=== PATIENT | female | born 1980 | race Two or more races ===

== ENCOUNTER 2020-07-14 21:49 | Observation (INO) | payer SELFPAY ==
[~2020-07-14] VITALS: Ht 157.5 cm; Wt 77.5 kg
[2020-07-14] MEDS ORDERED: CONTRAST GIVEN. MC PRN (22:45)
[2020-07-14] MEDS ORDERED: IOHEXOL 350 MG/ML 100 ML VIAL. IV ONE (22:45)
[2020-07-14 22:47] LABS: BILIRUBIN,URINE NEGATIVE (NEG); CLARITY,URINE CLEAR; COLOR,URINE YELLOW; NITRITE,URINE NEGATIVE (NEG); PH,URINE 7.5 (<5.0-8.0); PROTEIN,URINE NEGATIVE (NEG-TRACE); UROBILINOGEN,URINE 0.2 mg/dL (0.2 mg/dL)
[2020-07-14] MEDS ORDERED: MORPHINE SULFATE 10 MG/ML VIAL. ONE (22:51)
[2020-07-14 22:53] LABS: BASO % 0 % (0-3); EOS # 0.3 x10^3/uL (0.0-0.7); EOS % 2 % (0-3); HEMATOCRIT 34.6 % (36.0-47.0); HEMOGLOBIN 11.5 g/dL (12.0-15.5); LYMPH # 3.9 x10^3/uL (1.0-4.8); LYMPH % 36 % (24-48); MEAN CORPUSCULAR HEMOGLOBIN 25 pg (25-35); MEAN CORPUSCULAR HGB CONC 33 g/dL (31-37); MEAN CORPUSCULAR VOLUME 75 fL (79-100); MONO # 0.8 x10^3/uL (0.0-1.1); MONO % 7 % (0-9); NEUT # 5.8 x10^3/uL (1.8-7.7); NEUT % 54 % (31-73); PLATELET COUNT 345 x10^3/uL (140-400); RED BLOOD COUNT 4.61 x10^6/uL (3.50-5.40); RED CELL DISTRIBUTION WIDTH 17.3 % (11.5-14.5); WHITE BLOOD COUNT 10.7 x10^3/uL (4.0-11.0)
[2020-07-14 22:57] LABS: CALCIUM 8.7 mg/dL (8.5-10.1); CREATININE 0.7 mg/dL (0.6-1.0); GFR 94.2; POTASSIUM 3.5 mmol/L (3.5-5.1)
[2020-07-14 22:58] LABS: BACTERIA,URINE FEW /HPF (0-FEW); RBC,URINE 0 /HPF (0-2)
[2020-07-14] MEDS ORDERED: MORPHINE SULFATE 10 MG/ML VIAL. IV ONE (23:00)
[2020-07-14 23:03] LABS: ALBUMIN 3.9 g/dL (3.4-5.0); TOTAL BILIRUBIN 0.3 mg/dL (0.2-1.0); TOTAL PROTEIN 7.7 g/dL (6.4-8.2)
--- NOTE | 2020-07-14 23:42 | RAD ---
CTA Chest with contrast: Clinical History: Reason: back pain, chest pain, sob / Spl. Instructions: / History: Shortness of b reath. Axial helical images of the chest were obtained after the administration of 100 cc of IV Isovue-370 a nd timed appropriately for a pulmonary arterial study. Conventional axial reconstruction was perform ed in addition to coronal, sagittal and bilateral oblique MIP (maximum intensity projection). This s tudy was ordered to detect possible pulmonary embolism. There is a single tiny filling defect in the right lower lobe pulmonary artery seen in image #[id number]. The more peripheral subsegmental pulmonary arteries are not well opacified limiting our sensitivity f or small peripheral pulmonary emboli. There is mild patchy groundglass opacities bilaterally. There is a small hiatal hernia. There is no mediastinal or hilar lymphadenopathy. The thoracic aorta appears normal. Impression: 1. Single tiny pulmonary embolism. No significant clot burden. 2. Mild bilateral groundglass opacities of lungs is nonspecific and can be discoid atelectasis or pn eumonitis. End impression CT thoracic spine without contrast History: Reason: back pain, chest pain, sob / Spl. Instructions: / History: Axial helical images of the thoracic spine were obtained without contrast. Axial, coronal and sagitta l reconstruction was performed. Findings: There is mild dextroconvex curvature and kyphosis of the thoracic spine. The vertebral bodies are ali gned in the sagittal plane. There is no loss of vertebral body stature. Evaluation of the central canal is limited without contrast. There is no evidence of significant cent ral or neuroforaminal stenosis. Impression: 1. Mild dextro convex curvature and kyphosis. 2. No significant central or neuroforaminal stenosis. End impression PQRS Compliance Statement: One or more of the following individualized dose reduction techniques were utilized for this examinat ion: 1. Automated exposure control 2. Adjustment of the mA and/or kV according to patient size 3. Use of iterative reconstruction technique PQRS Compliance Statement: One or more of the following individualized dose reduction techniques were utilized for this examinat ion: 1. Automated exposure control 2. Adjustment of the mA and/or kV according to patient size 3. Use of iterative reconstruction technique Electronically signed by: Rafat Manzo III, MD (07/14/2020 11:39 PM) [facility]
[2020-07-15] MEDS ORDERED: ONDANSETRON PF 4 MG/2 ML VIAL. ONE (01:06)
[2020-07-15] MEDS ORDERED: ONDANSETRON PF 4 MG/2 ML VIAL. IVP ONE (01:15)
[2020-07-15 03:00] VITALS: BP 121/71
--- NOTE | 2020-07-15 03:29 | ED.ADGEN ---
Past Medical History Past Medical History: No Pertinent History Past Surgical History: Appendectomy, Cholecystectomy Smoking Status: Never Smoker Alcohol Use: None General Adult EDM: Chief Complaint: BACK PAIN - NO INJURY HPI: HPI: Patient is a 39-year-old female who presents to the emergency room complaining of severe thoracic back pain that radiates into her chest. Pain is worse with movement and deep breaths. She denies any cough, URI symptoms, fever, chills, abdominal pain, nausea, vomiting. She does have shortness of breath. She also feels this heaviness in her legs which has been intermittent for the last couple weeks. The pain in her chest and back have been ongoing for the last 30 hours. She states that it feels like a sharp moving pain. Pain is been constant. She denies any injuries. Review of Systems: Review of Systems: Complete ROS is negative unless otherwise documented in HPI Current Medications: Current Medications Medications (Trade) Dose Ordered Sig/Cordelia Start Time Stop Time Status Last Admin Dose Admin Enoxaparin Sodium (Lovenox 80mg Syringe) 80 mg 1X ONCE 07/15/20 00:00 07/15/20 00:01 DC 07/15/20 01:09 80 MG Info (CONTRAST GIVEN -- Rx MONITORING) 1 each PRN DAILY PRN 07/14/20 22:45 07/16/20 22:44 Iohexol (Omnipaque 350 Mg/ml) 100 ml 1X ONCE 07/14/20 22:45 07/14/20 22:46 DC 07/14/20 23:22 100 ML Morphine Sulfate (Morphine Sulfate) 5 mg 1X ONCE 07/14/20 23:00 07/14/20 23:01 DC 07/14/20 22:54 5 MG Allergies: Allergies: Allergies Coded Allergies Type Severity Reaction Last Updated Verified No Known Drug Allergies 07/14/20 No Physical Exam: PE: General: Awake, alert, mild distress. Well Nourished, well hydrated. Cooperative HEENT: Atraumatic, EOMI, PERRL, airway patent, moist oral mucosa Neck: Supple, trachea midline Respiratory: CTA bilaterally, normal effort, no wheezing/crackles CV: RRR, no murmur, cap refill <2 GI: Soft, nondistended, nontender, no masses MSK: Minimal tenderness to her thoracic back including spine Skin: Warm, dry, intact Neuro: A&O x3, speech NL, sensory and motor grossly intact, no focal deficits, normal sensation and 5 out of 5 strength proximally and distally in bilateral lower extremities Psych: Normal affect, normal mood, not suicidal or homicidal Current Patient Data: Labs: Laboratory Tests Test 07/14/20 22:00 07/14/20 22:18 07/14/20 22:30 07/15/20 00:05 Urine Collection Type Unknown Urine Color Yellow Urine Clarity Clear Urine pH 7.5 (<5.0-8.0) Urine Specific Callahan 1.015 (1.000-1.030) Urine Protein Negative mg/dL (NEG-TRACE) Urine Glucose (UA) Negative mg/dL (NEG) Urine Ketones (Stick) Negative mg/dL (NEG) Urine Blood Negative (NEG) Urine Nitrite Negative (NEG) Urine Bilirubin Negative (NEG) Urine Urobilinogen Dipstick 0.2 mg/dL (0.2 mg/dL) Urine Leukocyte Esterase Negative (NEG) Urine RBC 0 /HPF (0-2) Urine WBC 1-4 /HPF (0-4) Urine Squamous Epithelial Cells Many /LPF Urine Bacteria Few /HPF (0-FEW) POC Urine HCG, Qualitative Hcg negative (Negative) White Blood Count 10.7 x10^3/uL (4.0-11.0) Red Blood Count 4.61 x10^6/uL (3.50-5.40) Hemoglobin 11.5 g/dL (12.0-15.5) L Hematocrit 34.6 % (36.0-47.0) L Mean Corpuscular Volume 75 fL (79-100) L Mean Corpuscular Hemoglobin 25 pg (25-35) Mean Corpuscular Hemoglobin Concent 33 g/dL (31-37) Red Cell Distribution Width 17.3 % (11.5-14.5) H Platelet Count 345 x10^3/uL (140-400) Neutrophils (%) (Auto) 54 % (31-73) Lymphocytes (%) (Auto) 36 % (24-48) Monocytes (%) (Auto) 7 % (0-9) Eosinophils (%) (Auto) 2 % (0-3) Basophils (%) (Auto) 0 % (0-3) Neutrophils # (Auto) 5.8 x10^3/uL (1.8-7.7) Lymphocytes # (Auto) 3.9 x10^3/uL (1.0-4.8) Monocytes # (Auto) 0.8 x10^3/uL (0.0-1.1) Eosinophils # (Auto) 0.3 x10^3/uL (0.0-0.7) Basophils # (Auto) 0.0 x10^3/uL (0.0-0.2) Sodium Level 140 mmol/L (136-145) Potassium Level 3.5 mmol/L (3.5-5.1) Chloride Level 103 mmol/L (98-107) Carbon Dioxide Level 30 mmol/L (21-32) Anion Gap 7 (6-14) Blood Urea Nitrogen 14 mg/dL (7-20) Creatinine 0.7 mg/dL (0.6-1.0) Estimated GFR (Cockcroft-Gault) 94.2 BUN/Creatinine Ratio 20 (6-20) Glucose Level 93 mg/dL (70-99) Calcium Level 8.7 mg/dL (8.5-10.1) Total Bilirubin 0.3 mg/dL (0.2-1.0) Aspartate Amino Transferase (AST) 28 U/L (15-37) Alanine Aminotransferase (ALT) 42 U/L (14-59) Alkaline Phosphatase 108 U/L (46-116) Total Protein 7.7 g/dL (6.4-8.2) Albumin 3.9 g/dL (3.4-5.0) Albumin/Globulin Ratio 1.0 (1.0-1.7) SARS-CoV-2 Antigen (Rapid) Negative (NEGATIVE) Laboratory Tests 07/14/20 22:30 Laboratory Tests 07/14/20 22:30 Vital Signs: Vital Signs Date Time Temp Pulse Resp B/P (MAP) Pulse Ox O2 Delivery O2 Flow Rate FiO2 07/15/20 00:02 78 20 144/80 (101) 98 Room Air 07/14/20 22:00 98.5 98.5 EKG: EKG: [] Heart Score: C/O Chest Pain: Yes HEART Score for Chest Pain: HEART Score for Chest Pain Response (Comments) Value History Slighlty/Non-Suspicious 0 ECG Normal 0 Age < 45 0 Risk Factors No Risk Factors 0 Troponin < Normal Limit 0 Total 0 Risk Factors: Risk Factors: DM, Current or recent (<one month) smoker, HTN, HLP, family history of CAD, obesity. Risk Scores: Score 0 - 3: 2.5% MACE over next 6 weeks - Discharge Home Score 4 - 6: 20.3% MACE over next 6 weeks - Admit for Clinical Observation Score 7 - 10: 72.7% MACE over next 6 weeks - Early Invasive Strategies Radiology/Procedures: Radiology/Procedures: [] Course & Med Decision Making: Course & Med Decision Making Pertinent Labs and Imaging studies reviewed. (See chart for details) Patient is a 39-year-old female presents to the emergency room complaining of thoracic back pain and chest pain with shortness of breath and a pleuritic nature. She also is having weird feelings in her legs. CT angio will be done to rule out a blood clot given pleuritic chest pain and CT of the spine will be done to rule out any kind of metastatic lesions or spinal cord issues. CT does suggest possible pulmonary embolism. Patient will be covered with Lovenox. She will be admitted to be evaluated by the insurance examining clerk. Annalee Disclaimer: Annalee Disclaimer: This electronic medical record was generated, in whole or in part, using a voice recognition dictation system. Departure Departure Impression: Primary Impression: PE (pulmonary thromboembolism) Disposition: ADMITTED INPATIENT Condition: STABLE SALVADOR ZHONG MD July 15, 2020 03:29
[2020-07-15] MEDS ORDERED: ONDANSETRON PF 4 MG/2 ML VIAL. IVP PRN (03:45)
[2020-07-15] MEDS ORDERED: MORPHINE SULFATE 2 MG/ML VIAL. IV PRN (03:45)
[2020-07-15 07:55] VITALS: BP 90/56
--- NOTE | 2020-07-15 09:16 | PDOC1 ---
History and Physical Date of Admission Date of Admission DATE: 07/15/20 TIME: 09:16 Identification/Chief Complaint Chief Complaint lower back pain ,, SHORT STAY SUMMARY History of Present Illness History of Present Illness 39-year-old female who presented to the emergency room complaining of severe thoracic back pain that radiates into her chest early this AM ./ worse with movement and deep breaths. NO cough, URI symptoms, fever, chills, abdominal pain, nausea, vomiting. does have shortness of breath. POSITIVE FOR heaviness in her legs which has been intermittent for the last couple weeks. pain in her chest and back have been ongoing for the last 30 hours mild dextroconvex curvature and kyphosis of the thoracic spine. ON CT Single tiny pulmonary embolism. No significant clot burden. THIS MAY be artifact Mild bilateral groundglass opacities of lungs possible discoid atelectasis or pneumonitis./ PULM consulted Bilateral leg pain. rule out deep venous thrombosis. neg up walking according to Yudi EMERSON, DESIRES TO GO HOME Past Medical History Past Medical History Past Medical History Past Medical History Past Medical History: No Pertinent History Past Surgical History: Appendectomy, Cholecystectomy Smoking Status: Never Smoker Alcohol Use: None FHX OBESITY Heme/Onc: No pertinent hx Psych: Anxiety Family History Family History: Hypertension Social History Smoke: No ALCOHOL: none Drugs: None Current Problem List Problem List Problems Medical Problems: (1) PE (pulmonary thromboembolism) Status: Acute Current Medications Current Medications Current Medications Iohexol (Omnipaque 350 Mg/ml) 100 ml 1X ONCE IV Last administered on 07/14/20at 23:22; Start 07/14/20 at 22:45; Stop 07/14/20 at 22:46; Status DC Info (CONTRAST GIVEN -- Rx MONITORING) 1 each PRN DAILY PRN MC SEE COMMENTS; Start 07/14/20 at 22:45; Stop 07/16/20 at 22:44 Morphine Sulfate (Morphine Sulfate) 5 mg 1X ONCE IV Last administered on 07/14/20at 22:54; Start 07/14/20 at 23:00; Stop 07/14/20 at 23:01; Status DC Enoxaparin Sodium (Lovenox 80mg Syringe) 80 mg 1X ONCE SQ Last administered on 07/15/20at 01:09; Start 07/15/20 at 00:00; Stop 07/15/20 at 00:01; Status DC Ondansetron HCl (Zofran) 4 mg 1X ONCE IVP Last administered on 07/15/20at 01:09 ; Start 07/15/20 at 01:15; Stop 07/15/20 at 01:16; Status DC Ondansetron HCl (Zofran) 4 mg PRN Q4HRS PRN IVP NAUSEA/VOMITING Last administered on 07/15/20at 04:18; Start 07/15/20 at 03:45 Morphine Sulfate (Morphine Sulfate) 2 mg PRN Q2HR PRN IV PAIN Last administered on 07/15/20at 06:07; Start 07/15/20 at 03:45 Allergies Allergies: Coded Allergies: No Known Drug Allergies (Unverified , 07/14/20) ROS General: No: Chills, Night Sweats, Fatigue, Malaise, Appetite, Other PSYCHOLOGICAL ROS: No: Anxiety, Behavioral Disorder, Concentration difficultie, Decreased libido, Depression, Disorientation, Hallucinations, Hostility, Irritablity, Memory difficulties, Mood Swings, Obsessive thoughts, Physical abuse, Sexual abuse, Sleep disturbances, Suicidal ideation, Other Eyes: No Blurry vision, No Decreased vision, No Double vision, No Dry eyes, No Excessive tearing, No Eye Pain, No Itchy Eyes, No Loss of vision, No Photophobia, No Scotomata, No Uses contacts, No Uses glasses, No Other HEENT: No: Heacaches, Visual Changes, Hearing change, Nasal congestion, Nasal discharge, Oral lesions, Sinus pain, Sore Throat, Epistaxis, Sneezing, Snoring, Tinnitus, Vertigo, Vocal changes, Other ALLERGY AND IMMUNOLOGY: No: Hives, Insect Bite Sensitivity, Itchy/Watery Eyes, Nasal Congestion, Post Nasal Drip, Seasonal Allergies, Other Hematological and Lymphatic: No: Bleeding Problems, Blood Clots, Blood Transfusions, Brusing, Night Sweats, Pallor, Swollen Lymph Nodes, Other ENDOCRINE: No: Breast Changes, Galactorrhea, Hair Pattern Changes, Hot Flashes, Malaise/lethargy, Mood Swings, Palpitations, Polydipsia/polyuria, Skin Changes, Temperature Intolerance, Unexpected Weight Changes, Other Breast: No New/Changing Breast Lumps, No Nipple changes, No Nipple discharge, No Other Respiratory: No: Cough, Hemoptysis, Orthopnea, Pleuritic Pain, Shortness of breath, SOB with excertion, Sputum Changes, Stridor, Tachypnea, Wheezing, Other Cardiovascular: No Chest Pain, No Palpitations, No Orthopnea, No Paroxysmal Noc. Dyspnea, No Edema, No Lt Headedness, No Other Gastrointestinal: No Nausea, No Vomiting, No Abdominal Pain, No Diarrhea, No Constipation, No Melena, No Hematochezia, No Other Genitourinary: No Dysuria, No Frequency, No Incontinence, No Hematuria, No Retention, No Discharge, No Urgency, No Pain, No Flank Pain, No Other, No , No , No , No , No , No , No Musculoskeletal: Yes Pain In: (LOW BACK); No Gait Disturbance, No Joint Pain, No Joint Stiffness, No Joint Swelling, No Muscle Pain, No Muscular Weakness, No Swelling In:, No Other Neurological: No Behavorial Changes, No Bowel/Bladder ControlChng, No Confusion, No Dizziness, No Gait Disturbance, No Headaches, No Impaired C oord/balance, No Memory Loss, No Numbness/Tingling, No Seizures, No Speech Problems, No Tremors, No Visual Changes, No Weakness, No Other Skin: No Dry Skin, No Eczema, No Hair Changes, No Lumps, No Mole Changes, No Mottling, No Nail Changes, No Pruritus, No Rash, No Skin Lesion Changes, No Other, No Acne Physical Exam General: Alert, Oriented X3, Cooperative, No acute distress HEENT: Atraumatic, PERRLA, EOMI, Mucous membr. moist/pink Lungs: Clear to auscultation, Normal air movement Heart: RRR, no thrills, no rubs, no gallops Cardiovascular: S1, S2 Breasts: Not examined Abdomen: Normal bowel sounds, Soft Rectal Exam: not examined Neuro: Normal speech, Strength at 5/5 X4 ext, Sensation intact, Cranial nerves 3-12 NL Psych/Mental Status: Mental status NL, Mood NL Vitals Vitals Vital Signs Date Time Temp Pulse Resp B/P (MAP) Pulse Ox O2 Delivery O2 Flow Rate FiO2 07/15/20 07:55 98.0 69 20 90/56 (67) 98 Room Air 98.0 Labs Labs Laboratory Tests Test 07/14/20 22:00 07/14/20 22:18 07/14/20 22:30 07/15/20 00:05 Urine Collection Type Unknown Urine Color Yellow Urine Clarity Clear Urine pH 7.5 (<5.0-8.0) Urine Specific [place] 1.015 (1.000-1.030) Urine Protein Negative mg/dL (NEG-TRACE) Urine Glucose (UA) Negative mg/dL (NEG) Urine Ketones (Stick) Negative mg/dL (NEG) Urine Blood Negative (NEG) Urine Nitrite Negative (NEG) Urine Bilirubin Negative (NEG) Urine Urobilinogen Dipstick 0.2 mg/dL (0.2 mg/dL) Urine Leukocyte Esterase Negative (NEG) Urine RBC 0 /HPF (0-2) Urine WBC 1-4 /HPF (0-4) Urine Squamous Epithelial Cells Many /LPF Urine Bacteria Few /HPF (0-FEW) Bedside Urine HCG, Qualitative Hcg negative (Negative) White Blood Count 10.7 x10^3/uL (4.0-11.0) Red Blood Count 4.61 x10^6/uL (3.50-5.40) Hemoglobin 11.5 g/dL (12.0-15.5) Hematocrit 34.6 % (36.0-47.0) Mean Corpuscular Volume 75 fL (79-100) Mean Corpuscular Hemoglobin 25 pg (25-35) Mean Corpuscular Hemoglobin Concent 33 g/dL (31-37) Red Cell Distribution Width 17.3 % (11.5-14.5) Platelet Count 345 x10^3/uL (140-400) Neutrophils (%) (Auto) 54 % (31-73) Lymphocytes (%) (Auto) 36 % (24-48) Monocytes (%) (Auto) 7 % (0-9) Eosinophils (%) (Auto) 2 % (0-3) Basophils (%) (Auto) 0 % (0-3) Neutrophils # (Auto) 5.8 x10^3/uL (1.8-7.7) Lymphocytes # (Auto) 3.9 x10^3/uL (1.0-4.8) Monocytes # (Auto) 0.8 x10^3/uL (0.0-1.1) Eosinophils # (Auto) 0.3 x10^3/uL (0.0-0.7) Basophils # (Auto) 0.0 x10^3/uL (0.0-0.2) Sodium Level 140 mmol/L (136-145) Potassium Level 3.5 mmol/L (3.5-5.1) Chloride Level 103 mmol/L (98-107) Carbon Dioxide Level 30 mmol/L (21-32) Anion Gap 7 (6-14) Blood Urea Nitrogen 14 mg/dL (7-20) Creatinine 0.7 mg/dL (0.6-1.0) Estimated GFR (Cockcroft-Gault) 94.2 BUN/Creatinine Ratio 20 (6-20) Glucose Level 93 mg/dL (70-99) Calcium Level 8.7 mg/dL (8.5-10.1) Total Bilirubin 0.3 mg/dL (0.2-1.0) Aspartate Amino Transf (AST/SGOT) 28 U/L (15-37) Alanine Aminotransferase (ALT/SGPT) 42 U/L (14-59) Alkaline Phosphatase 108 U/L (46-116) Total Protein 7.7 g/dL (6.4-8.2) Albumin 3.9 g/dL (3.4-5.0) Albumin/Globulin Ratio 1.0 (1.0-1.7) SARS-CoV-2 RNA (FATOU) Negative (Negative) SARS-CoV-2 Antigen (Rapid) Negative (NEGATIVE) Laboratory Tests Test 07/14/20 22:00 07/14/20 22:18 07/14/20 22:30 07/15/20 00:05 Urine Collection Type Unknown Urine Color Yellow Urine Clarity Clear Urine pH 7.5 (<5.0-8.0) Urine Specific [place] 1.015 (1.000-1.030) Urine Protein Negative mg/dL (NEG-TRACE) Urine Glucose (UA) Negative mg/dL (NEG) Urine Ketones (Stick) Negative mg/dL (NEG) Urine Blood Negative (NEG) Urine Nitrite Negative (NEG) Urine Bilirubin Negative (NEG) Urine Urobilinogen Dipstick 0.2 mg/dL (0.2 mg/dL) Urine Leukocyte Esterase Negative (NEG) Urine RBC 0 /HPF (0-2) Urine WBC 1-4 /HPF (0-4) Urine Squamous Epithelial Cells Many /LPF Urine Bacteria Few /HPF (0-FEW) Bedside Urine HCG, Qualitative Hcg negative (Negative) White Blood Count 10.7 x10^3/uL (4.0-11.0) Red Blood Count 4.61 x10^6/uL (3.50-5.40) Hemoglobin 11.5 g/dL (12.0-15.5) Hematocrit 34.6 % (36.0-47.0) Mean Corpuscular Volume 75 fL (79-100) Mean Corpuscular Hemoglobin 25 pg (25-35) Mean Corpuscular Hemoglobin Concent 33 g/dL (31-37) Red Cell Distribution Width 17.3 % (11.5-14.5) Platelet Count 345 x10^3/uL (140-400) Neutrophils (%) (Auto) 54 % (31-73) Lymphocytes (%) (Auto) 36 % (24-48) Monocytes (%) (Auto) 7 % (0-9) Eosinophils (%) (Auto) 2 % (0-3) Basophils (%) (Auto) 0 % (0-3) Neutrophils # (Auto) 5.8 x10^3/uL (1.8-7.7) Lymphocytes # (Auto) 3.9 x10^3/uL (1.0-4.8) Monocytes # (Auto) 0.8 x10^3/uL (0.0-1.1) Eosinophils # (Auto) 0.3 x10^3/uL (0.0-0.7) Basophils # (Auto) 0.0 x10^3/uL (0.0-0.2) Sodium Level 140 mmol/L (136-145) Potassium Level 3.5 mmol/L (3.5-5.1) Chloride Level 103 mmol/L (98-107) Carbon Dioxide Level 30 mmol/L (21-32) Anion Gap 7 (6-14) Blood Urea Nitrogen 14 mg/dL (7-20) Creatinine 0.7 mg/dL (0.6-1.0) Estimated GFR (Cockcroft-Gault) 94.2 BUN/Creatinine Ratio 20 (6-20) Glucose Level 93 mg/dL (70-99) Calcium Level 8.7 mg/dL (8.5-10.1) Total Bilirubin 0.3 mg/dL (0.2-1.0) Aspartate Amino Transf (AST/SGOT) 28 U/L (15-37) Alanine Aminotransferase (ALT/SGPT) 42 U/L (14-59) Alkaline Phosphatase 108 U/L (46-116) Total Protein 7.7 g/dL (6.4-8.2) Albumin 3.9 g/dL (3.4-5.0) Albumin/Globulin Ratio 1.0 (1.0-1.7) SARS-CoV-2 RNA (FATOU) Negative (Negative) SARS-CoV-2 Antigen (Rapid) Negative (NEGATIVE) Images Images CTA Chest with contrast: Clinical History: Reason: back pain, chest pain, sob / Spl. Instructions: / History: Shortness of breath. Axial helical images of the chest were obtained after the administration of 100 cc of IV Isovue-370 and timed appropriately for a pulmonary arterial study. Conventional axial reconstruction was performed in addition to coronal, sagittal and bilateral oblique MIP (maximum intensity projection). This study was ordered to detect possible pulmonary embolism. There is a single tiny filling defect in the right lower lobe pulmonary artery seen in image #77. The more peripheral subsegmental pulmonary arteries are not well opacified limiting our sensitivity for small peripheral pulmonary emboli. There is mild patchy groundglass opacities bilaterally. There is a small hiatal hernia. There is no mediastinal or hilar lymphadenopathy. The thoracic aorta appears normal. Impression: 1. Single tiny pulmonary embolism. No significant clot burden. 2. Mild bilateral groundglass opacities of lungs is nonspecific and can be discoid atelectasis or pneumonitis. End impression CT thoracic spine without contrast History: Reason: back pain, chest pain, sob / Spl. Instructions: / History: Axial helical images of the thoracic spine were obtained without contrast. Axial, coronal and sagittal reconstruction was performed. Findings: There is mild dextroconvex curvature and kyphosis of the thoracic spine. The vertebral bodies are aligned in the sagittal plane. There is no loss of vertebral body stature. Evaluation of the central canal is limited without contrast. There is no evidence of significant central or neuroforaminal stenosis. Impression: 1. Mild dextro convex curvature and kyphosis. 2. No significant central or neuroforaminal stenosis. End impression PQRS Compliance Statement: One or more of the following individualized dose reduction techniques were utilized for this examination: 1. Automated exposure control 2. Adjustment of the mA and/or kV according to patient size 3. Use of iterative reconstruction technique PQRS Compliance Statement: One or more of the following individualized dose reduction techniques were utilized for this examination: 1. Automated exposure control 2. Adjustment of the mA and/or kV according to patient size 3. Use of iterative reconstruction technique Electronically signed by: Orquidea De La Cruz III, MD (07/14/2020 11:39 PM) [facility] DICTATED AND SIGNED BY: MYRA FERRER MD DATE: 07/15/20 0917 CC: PIPO SIERRA MD; SALVADOR ZHONG MD; ALO LEGGETT MD; NO PCP ~ CTA Chest with contrast: Clinical History: Reason: back pain, chest pain, sob / Spl. Instructions: / Hi story: Shortness of breath. Axial helical images of the chest were obtained after the administration of 100 cc of IV Isovue-370 and timed appropriately for a pulmonary arterial study. Conventional axial reconstruction was performed in addition to coronal, sagittal and bilateral oblique MIP (maximum intensity projection). This study was ordered to detect possible pulmonary embolism. There is a single tiny filling defect in the right lower lobe pulmonary artery seen in image #77. The more peripheral subsegmental pulmonary arteries are not well opacified limiting our sensitivity for small peripheral pulmonary emboli. There is mild patchy groundglass opacities bilaterally. There is a small hiatal hernia. There is no mediastinal or hilar lymphadenopathy. The thoracic aorta appears normal. Impression: 1. Single tiny pulmonary embolism. No significant clot burden. 2. Mild bilateral groundglass opacities of lungs is nonspecific and can be discoid atelectasis or pneumonitis. End impression CT thoracic spine without contrast History: Reason: back pain, chest pain, sob / Spl. Instructions: / History: Axial helical images of the thoracic spine were obtained without contrast. Axial, coronal and sagittal reconstruction was performed. Findings: There is mild dextroconvex curvature and kyphosis of the thoracic spine. The vertebral bodies are aligned in the sagittal plane. There is no loss of vertebral body stature. Evaluation of the central canal is limited without contrast. There is no evidence of significant central or neuroforaminal stenosis. Impression: 1. Mild dextro convex curvature and kyphosis. 2. No significant central or neuroforaminal stenosis. End impression PQRS Compliance Statement: One or more of the following individualized dose reduction techniques were utilized for this examination: 1. Automated exposure control 2. Adjustment of the mA and/or kV according to patient size 3. Use of iterative reconstruction technique PQRS Compliance Statement: One or more of the following individualized dose reduction techniques were utilized for this examination: 1. Automated exposure control 2. Adjustment of the mA and/or kV according to patient size 3. Use of iterative reconstruction technique Electronically signed by: Orquidea De La Cruz III, MD (07/14/2020 11:39 PM) [facility] DICTATED and SIGNED BY: ORQUIDEA DE LA CRUZ III, MD DATE: 07/14/20 [id number] 0 VTE Prophylaxis Ordered VTE Prophylaxis Devices: No VTE Pharmacological Prophylaxi: Yes Assessment/Plan Assessment/Plan Impression: 1. Single tiny pulmonary embolism. No significant clot burden. THIS MAY be artifact 2. Mild bilateral groundglass opacities of lungs possible discoid atelectasis or pneumonitis. 3. morbid obesity 4. Bilateral leg pain. rule out deep venous thrombosis. 5. microcytic anemia PLAN ADMIT PULM CONSULT pain control rule out deep venous thrombosis. fe panel dvt prophylaxis OK TO D/C UP WALKING IN NO PAIN, SEE PCP NEXT WEEK, MAY NEED OUT PT PHYSICAL THERAPY D/W DR LEGGETT Justifications for Admission Other Justification PIPO SIERRA MD July 15, 2020 09:16
--- NOTE | 2020-07-15 10:01 | CONS ---
DATE OF CONSULTATION: 07/15/2020 ATTENDING PHYSICIAN: Dr. Bruno. REASON FOR CONSULTATION: Pulmonary embolism. HISTORY OF PRESENT ILLNESS: The patient is a 39-year-old female who has no significant tobacco history and no history of asthma. The patient was brought into the emergency room with complaint of pain in the upper back posteriorly. The patient states this pain has been present for last few days. She also was complaining of pain in the lower leg, especially the right leg. She denies any shortness of breath. Denies any cough, fever, chills. The patient underwent CTA of chest, which was reviewed by me. It was reported as single tiny pulmonary embolism in the right lower lobe. However, upon my review, it was not convincing for any significant pulmonary embolism. I have also discussed it with the staff radiologist, who concurred and will be doing an addendum. Venous Dopplers will be added as well. PAST MEDICAL HISTORY: Essentially unremarkable. SURGERIES: Appendectomy, cholecystectomy. SOCIAL HISTORY: Nonsmoker, nonalcoholic. ALLERGIES: None. MEDICATIONS: Reviewed as listed in the MRAD. She received one dose of Lovenox. REVIEW OF SYSTEMS: A 12-point system obtained. Pertinent positives discussed in my presence illness, otherwise noncontributory. All systems that were negative were reviewed as well. PHYSICAL EXAMINATION: VITAL SIGNS: Reviewed. Pulse ox ____ on room air, afebrile. NECK: Supple. LUNGS: With diminished breath sounds bilaterally. CARDIOVASCULAR: With a regular rate. ABDOMEN: Soft, nontender. EXTREMITIES: With no pitting edema. LABORATORY DATA: Reviewed. Her COVID test is negative. BUN and creatinine normal. White cell count 10.7, hemoglobin 11.5, platelets are 345. IMPRESSION: 1. Upper back pain with no obvious etiology. Could be muscular pain. CTA of chest is reviewed and there is no convincing evidence per my review for a tiny clot which was reported on the official report. I have discussed it with the staff radiologist this morning and there will be an addendum report and she concurs with my impression. 2. Bilateral leg pain. We will rule out any deep venous thrombosis. 3. No significant tobacco history. 4. No significant fracture in the thoracic spine. Mild dextroconvex curvature and kyphosis. RECOMMENDATIONS: 1. Discussed with the radiologist and discussed with RN as I am not totally convinced for any significant pulmonary embolism. However, we will obtain venous Dopplers of lower extremities. 2. If Dopplers are negative, then no need for anticoagulation. 3. P.r.n. pain control. 4. We will follow with you. PAUL/JAMES DR: Clara TID: [id number]
[2020-07-15 10:10] VITALS: BP 106/67
[2020-07-15] MEDS ORDERED: DOCUSATE SODIUM 100 MG CAPSULE. PO PRN (11:15)
[2020-07-15] MEDS ORDERED: ACETAMINOPHEN 325 MG TABLET. PO PRN (11:15)
[2020-07-15] MEDS ORDERED: diphenhydrAMINE 50 MG/ML VIAL IVP PRN (11:15)
[2020-07-15] MEDS ORDERED: MAG HYDROX/ALUMINUM HYD/SIMETH 30 ML ORAL.SUSP PO PRN (11:15)
[2020-07-15] MEDS ORDERED: ONDANSETRON PF 4 MG/2 ML VIAL. IV PRN (11:15)
[2020-07-15] MEDS ORDERED: SODIUM PHOSPHATES 19/7GM 133 ML ENEMA. PR PRN (11:15)
[2020-07-15] MEDS ORDERED: ALBUTEROL SULFATE 2.5 MG/3 ML NEBU. NEB PRN (11:15)
[2020-07-15] MEDS ORDERED: 0.9 % SODIUM CHLORIDE 10 ML DISP.SYRIN. IV PRN (11:15)
[2020-07-15] MEDS ORDERED: cloNIDine HCL 0.1 MG TABLET PO PRN (11:15)
[2020-07-15] MEDS ORDERED: guaiFENesin ORAL 200 MG/10 ML LIQUID. PO PRN (11:15)
--- NOTE | 2020-07-15 12:02 | RAD ---
EXAM: Bilateral lower extremity venous Doppler. HISTORY: Bilateral lower extremity pain/swelling. COMPARISON: None. FINDINGS: Grayscale and Doppler analysis of the both lower extremity deep venous systems was performe d with graded compression and augmentation. The common femoral, greater saphenous, superficial femora l, popliteal and calf veins were assessed. There is no evidence of deep venous thrombosis. IMPRESSION: 1. No evidence of deep venous thrombosis. Electronically signed by: Brenda Alexandre MD (07/15/2020 12:00 PM) [facility]
[2020-07-15 14:57] VITALS: BP 102/60
--- NOTE | 2020-07-15 15:24 | NUR ---
SS following for discharge planning. SS reviewed pt chart and discussed with pt RN. Pt is from home with family and is currently on room air. COVID19 negative. PT recommended home. Self pay. SS will continue to follow for discharge planning.
--- NOTE | 2020-07-15 15:34 | PDOC3 ---
Discharge Summary Date of Admission: July 15, 2020 Date of Discharge: July 15, 2020 Follow-Up: 3-5 days Admitting Diagnosis comment: DISCHARGE DX CONSULTS DR LEGGETT D/C CONDITION GOOD SEE PCP NEXT WEEK, TRY BUSTER BACK PAIN FLEXION EXERCISES PROGNOSIS EXCELLENT WITH COMPLIANCE Assessment/Plan Impression: 1. Single tiny pulmonary embolism. No significant clot burden. THIS MAY be artifact 2. Mild bilateral groundglass opacities of lungs possible discoid atelectasis or pneumonitis. 3. morbid obesity 4. Bilateral leg pain. rule out deep venous thrombosis. 5. microcytic anemia PLAN ADMIT PULM CONSULT pain control rule out deep venous thrombosis. fe panel dvt prophylaxis OK TO D/C UP WALKING IN NO PAIN, SEE PCP NEXT WEEK, MAY NEED OUT PT PHYSICAL THERAPY Identification/Chief Complaint Chief Complaint lower back pain ,, SHORT STAY SUMMARY History of Present Illness History of Present Illness 39-year-old female who presented to the emergency room complaining of severe thoracic back pain that radiates into her chest early this AM ./ worse with movement and deep breaths. NO cough, URI symptoms, fever, chills, abdominal pain, nausea, vomiting. does have shortness of breath. POSITIVE FOR heaviness in her legs which has been intermittent for the last couple weeks. pain in her chest and back have been ongoing for the last 30 hours mild dextroconvex curvature and kyphosis of the thoracic spine. ON CT Single tiny pulmonary embolism. No significant clot burden. THIS MAY be artifact Mild bilateral groundglass opacities of lungs possible discoid atelectasis or pneumonitis./ PULM consulted Bilateral leg pain. rule out deep venous thrombosis. neg up walking according to Yudi EMERSON, DESIRES TO GO HOME Past Medical History Past Medical History Past Medical History Past Medical History Past Medical History: No Pertinent History Past Surgical History: Appendectomy, Cholecystectomy Smoking Status: Never Smoker Alcohol Use: None FHX OBESITY Heme/Onc: No pertinent hx Psych: Anxiety Family History Family History: Hypertension Social History Smoke: No ALCOHOL: none Drugs: None Current Problem List Problem List Problems Medical Problems: (1) PE (pulmonary thromboembolism) Status: Acute Current Medications Current Medications Current Medications Iohexol (Omnipaque 350 Mg/ml) 100 ml 1X ONCE IV Last administered on 07/14/20at 23:22; Start 07/14/20 at 22:45; Stop 07/14/20 at 22:46; Status DC Info (CONTRAST GIVEN -- Rx MONITORING) 1 each PRN DAILY PRN MC SEE COMMENTS; S tart 07/14/20 at 22:45; Stop 07/16/20 at 22:44 Morphine Sulfate (Morphine Sulfate) 5 mg 1X ONCE IV Last administered on 07/14/20at 22:54; Start 07/14/20 at 23:00; Stop 07/14/20 at 23:01; Status DC Enoxaparin Sodium (Lovenox 80mg Syringe) 80 mg 1X ONCE SQ Last administered on 07/15/20at 01:09; Start 07/15/20 at 00:00; Stop 07/15/20 at 00:01; Status DC Ondansetron HCl (Zofran) 4 mg 1X ONCE IVP Last administered on 07/15/20at 01:09; Start 07/15/20 at 01:15; Stop 07/15/20 at 01:16; Status DC Ondansetron HCl (Zofran) 4 mg PRN Q4HRS PRN IVP NAUSEA/VOMITING Last administered on 07/15/20at 04:18; Start 07/15/20 at 03:45 Morphine Sulfate (Morphine Sulfate) 2 mg PRN Q2HR PRN IV PAIN Last administered on 07/15/20at 06:07; Start 07/15/20 at 03:45 Allergies Allergies: Coded Allergies: No Known Drug Allergies (Unverified , 07/14/20) ROS General: No: Chills, Night Sweats, Fatigue, Malaise, Appetite, Other PSYCHOLOGICAL ROS: No: Anxiety, Behavioral Disorder, Concentration difficultie, Decreased libido, Depression, Disorientation, Hallucinations, Hostility, Irritablity, Memory difficulties, Mood Swings, Obsessive thoughts, Physical abuse, Sexual abuse, Sleep disturbances, Suicidal ideation, Other Eyes: No Blurry vision, No Decreased vision, No Double vision, No Dry eyes, No Excessive tearing, No Eye Pain, No Itchy Eyes, No Loss of vision, No Photophobia, No Scotomata, No Uses contacts, No Uses glasses, No Other HEENT: No: Heacaches, Visual Changes, Hearing change, Nasal congestion, Nasal discharge, Oral lesions, Sinus pain, Sore Throat, Epistaxis, Sneezing, Snoring, Tinnitus, Vertigo, Vocal changes, Other ALLERGY AND IMMUNOLOGY: No: Hives, Insect Bite Sensitivity, Itchy/Watery Eyes, Nasal Congestion, Post Nasal Drip, Seasonal Allergies, Other Hematological and Lymphatic: No: Bleeding Problems, Blood Clots, Blood Transfusions, Brusing, Night Sweats, Pallor, Swollen Lymph Nodes, Other ENDOCRINE: No: Breast Changes, Galactorrhea, Hair Pattern Changes, Hot Flashes, Malaise/lethargy, Mood Swings, Palpitations, Polydipsia/polyuria, Skin Changes, Temperature Intolerance, Unexpected Weight Changes, Other Breast: No New/Changing Breast Lumps, No Nipple changes, No Nipple discharge, No Other Respiratory: No: Cough, Hemoptysis, Orthopnea, Pleuritic Pain, Shortness of breath, SOB with excertion, Sputum Changes, Stridor, Tachypnea, Wheezing, Other Cardiovascular: No Chest Pain, No Palpitations, No Orthopnea, No Paroxysmal Noc. Dyspnea, No Edema, No Lt Headedness, No Other Gastrointestinal: No Nausea, No Vomiting, No Abdominal Pain, No Diarrhea, No Constipation, No Melena, No Hematochezia, No Other Genitourinary: No Dysuria, No Frequency, No Incontinence, No Hematuria, No Retention, No Discharge, No Urgency, No Pain, No Flank Pain, No Other, No , No , No , No , No , No , No Musculoskeletal: Yes Pain In: (LOW BACK); No Gait Disturbance, No Joint Pain, No Joint Stiffness, No Joint Swelling, No Muscle Pain, No Muscular Weakness, No Swelling In:, No Other Neurological: No Behavorial Changes, No Bowel/Bladder ControlChng, No Confusion, No Dizziness, No Gait Disturbance, No Headaches, No Impaired Coord/balance, No Memory Loss, No Numbness/Tingling, No Seizures, No Speech P roblems, No Tremors, No Visual Changes, No Weakness, No Other Skin: No Dry Skin, No Eczema, No Hair Changes, No Lumps, No Mole Changes, No Mottling, No Nail Changes, No Pruritus, No Rash, No Skin Lesion Changes, No Other, No Acne Physical Exam General: Alert, Oriented X3, Cooperative, No acute distress HEENT: Atraumatic, PERRLA, EOMI, Mucous membr. moist/pink Lungs: Clear to auscultation, Normal air movement Heart: RRR, no thrills, no rubs, no gallops Cardiovascular: S1, S2 Breasts: Not examined Abdomen: Normal bowel sounds, Soft Rectal Exam: not examined Neuro: Normal speech, Strength at 5/5 X4 ext, Sensation intact, Cranial nerves 3-12 NL Psych/Mental Status: Mental status NL, Mood NL FINAL DIAGNOSIS Problems Medical Problems: (1) PE (pulmonary thromboembolism) Status: Acute Brief Hospital Course Ms. Caicedo is a 39 old [sex] who presented with [ LOW BACK PAIN] CONDITION AT DISCHARGE: Improved Discharge Medications Current Medications Iohexol (Omnipaque 350 Mg/ml) 100 ml 1X ONCE IV Last administered on 07/14/20at 23:22; Start 07/14/20 at 22:45; Stop 07/14/20 at 22:46; Status DC Info (CONTRAST GIVEN -- Rx MONITORING) 1 each PRN DAILY PRN MC SEE COMMENTS; Start 07/14/20 at 22:45; Stop 07/16/20 at 22:44 Morphine Sulfate (Morphine Sulfate) 5 mg 1X ONCE IV Last administered on 07/14/20at 22:54; Start 07/14/20 at 23:00; Stop 07/14/20 at 23:01; Status DC Enoxaparin Sodium (Lovenox 80mg Syringe) 80 mg 1X ONCE SQ Last administered on 07/15/20at 01:09; Start 07/15/20 at 00:00; Stop 07/15/20 at 00:01; Status DC Ondansetron HCl (Zofran) 4 mg 1X ONCE IVP Last administered on 07/15/20at 01: 09; Start 07/15/20 at 01:15; Stop 07/15/20 at 01:16; Status DC Ondansetron HCl (Zofran) 4 mg PRN Q4HRS PRN IVP NAUSEA/VOMITING Last administered on 07/15/20at 04:18; Start 07/15/20 at 03:45 Morphine Sulfate (Morphine Sulfate) 2 mg PRN Q2HR PRN IV PAIN Last administered on 07/15/20at 06:07; Start 07/15/20 at 03:45 Sodium Chloride (Normal Saline Flush) 3 ml QSHIFT PRN IV AFTER MEDS AND BLOOD DRAWS; Start 07/15/20 at 11:15 Ondansetron HCl (Zofran) 4 mg PRN Q4HRS PRN IV NAUSEA/VOMITING; Start 07/15/20 at 11:15 Acetaminophen (Tylenol) 650 mg PRN Q4HRS PRN PO TEMP OVER 100.4F OR MILD PAIN Last administered on 07/15/20at 12:25; Start 07/15/20 at 11:15 Al Hydroxide/Mg Hydroxide (Mylanta Plus Xs) 30 ml PRN DAILY PRN PO HEARTBURN / GAS; Start 07/15/20 at 11:15 Clonidine HCl (Catapres) 0.1 mg PRN Q6HRS PRN PO SBP>160 OR DBP>90; Start 07/15/20 at 11:15 Sodium Monofluorophosphate (Fleet Adult) 133 ml PRN DAILY PRN [place] CONSTIPATION; Start 07/15/20 at 11:15 Diphenhydramine HCl (Benadryl) 25 mg PRN Q4HRS PRN IVP ITCHING; Start 07/15/20 at 11:15 Docusate Sodium (Colace) 100 mg PRN BID PRN PO HARD STOOLS; Start 07/15/20 at 11:15 Albuterol Sulfate (Ventolin Neb Soln) 2.5 mg PRN Q4HRS PRN NEB SHORTNESS OF BREATH; Start 07/15/20 at 11:15 Guaifenesin (Robitussin) 200 mg PRN Q4HRS PRN PO COUGH; Start 07/15/20 at 11:15 Enoxaparin Sodium (Lovenox 40mg Syringe) 40 mg Q24H SQ ; Start 07/16/20 at 09:00 Vital Signs Vital Signs Date Time Temp Pulse Resp B/P (MAP) Pulse Ox O2 Delivery O2 Flow Rate FiO2 07/15/20 14:57 97.5 87 18 102/60 (74) 98 Room Air 97.5 Labs Laboratory Tests Test 07/14/20 22:00 07/14/20 22:08 07/14/20 22:18 07/14/20 22:30 Urine Collection Type Unknown Urine Color Yellow Urine Clarity Clear Urine pH 7.5 (<5.0-8.0) Urine Specific [place] 1.015 (1.000-1.030) Urine Protein Negative mg/dL (NEG-TRACE) Urine Glucose (UA) Negative mg/dL (NEG) Urine Ketones (Stick) Negative mg/dL (NEG) Urine Blood Negative (NEG) Urine Nitrite Negative (NEG) Urine Bilirubin Negative (NEG) Urine Urobilinogen Dipstick 0.2 mg/dL (0.2 mg/dL) Urine Leukocyte Esterase Negative (NEG) Urine RBC 0 /HPF (0-2) Urine WBC 1-4 /HPF (0-4) Urine Squamous Epithelial Cells Many /LPF Urine Bacteria Few /HPF (0-FEW) Iron Level 139 ug/dL (50-170) Total Iron Binding Capacity 482 ug/dL (250-450) Iron Saturation 29 % (15-34) Bedside Urine HCG, Qualitative Hcg negative (Negative) White Blood Count 10.7 x10^3/uL (4.0-11.0) Red Blood Count 4.61 x10^6/uL (3.50-5.40) Hemoglobin 11.5 g/dL (12.0-15.5) Hematocrit 34.6 % (36.0-47.0) Mean Corpuscular Volume 75 fL (79-100) Mean Corpuscular Hemoglobin 25 pg (25-35) Mean Corpuscular Hemoglobin Concent 33 g/dL (31-37) Red Cell Distribution Width 17.3 % (11.5-14.5) Platelet Count 345 x10^3/uL (140-400) Neutrophils (%) (Auto) 54 % (31-73) Lymphocytes (%) (Auto) 36 % (24-48) Monocytes (%) (Auto) 7 % (0-9) Eosinophils (%) (Auto) 2 % (0-3) Basophils (%) (Auto) 0 % (0-3) Neutrophils # (Auto) 5.8 x10^3/uL (1.8-7.7) Lymphocytes # (Auto) 3.9 x10^3/uL (1.0-4.8) Monocytes # (Auto) 0.8 x10^3/uL (0.0-1.1) Eosinophils # (Auto) 0.3 x10^3/uL (0.0-0.7) Basophils # (Auto) 0.0 x10^3/uL (0.0-0.2) Sodium Level 140 mmol/L (136-145) Potassium Level 3.5 mmol/L (3.5-5.1) Chloride Level 103 mmol/L (98-107) Carbon Dioxide Level 30 mmol/L (21-32) Anion Gap 7 (6-14) Blood Urea Nitrogen 14 mg/dL (7-20) Creatinine 0.7 mg/dL (0.6-1.0) Estimated GFR (Cockcroft-Gault) 94.2 BUN/Creatinine Ratio 20 (6-20) Glucose Level 93 mg/dL (70-99) Calcium Level 8.7 mg/dL (8.5-10.1) Total Bilirubin 0.3 mg/dL (0.2-1.0) Aspartate Amino Transf (AST/SGOT) 28 U/L (15-37) Alanine Aminotransferase (ALT/SGPT) 42 U/L (14-59) Alkaline Phosphatase 108 U/L (46-116) Total Protein 7.7 g/dL (6.4-8.2) Albumin 3.9 g/dL (3.4-5.0) Albumin/Globulin Ratio 1.0 (1.0-1.7) Test 07/15/20 00:05 SARS-CoV-2 RNA (FATOU) Negative (Negative) SARS-CoV-2 Antigen (Rapid) Negative (NEGATIVE) Laboratory Tests Test 07/14/20 22:00 07/14/20 22:08 07/14/20 22:18 07/14/20 22:30 Urine Collection Type Unknown Urine Color Yellow Urine Clarity Clear Urine pH 7.5 (<5.0-8.0) Urine Specific [place] 1.015 (1.000-1.030) Urine Protein Negative mg/dL (NEG-TRACE) Urine Glucose (UA) Negative mg/dL (NEG) Urine Ketones (Stick) Negative mg/dL (NEG) Urine Blood Negative (NEG) Urine Nitrite Negative (NEG) Urine Bilirubin Negative (NEG) Urine Urobilinogen Dipstick 0.2 mg/dL (0.2 mg/dL) Urine Leukocyte Esterase Negative (NEG) Urine RBC 0 /HPF (0-2) Urine WBC 1-4 /HPF (0-4) Urine Squamous Epithelial Cells Many /LPF Urine Bacteria Few /HPF (0-FEW) Iron Level 139 ug/dL (50-170) Total Iron Binding Capacity 482 ug/dL (250-450) Iron Saturation 29 % (15-34) Bedside Urine HCG, Qualitative Hcg negative (Negative) White Blood Count 10.7 x10^3/uL (4.0-11.0) Red Blood Count 4.61 x10^6/uL (3.50-5.40) Hemoglobin 11.5 g/dL (12.0-15.5) Hematocrit 34.6 % (36.0-47.0) Mean Corpuscular Volume 75 fL (79-100) Mean Corpuscular Hemoglobin 25 pg (25-35) Mean Corpuscular Hemoglobin Concent 33 g/dL (31-37) Red Cell Distribution Width 17.3 % (11.5-14.5) Platelet Count 345 x10^3/uL (140-400) Neutrophils (%) (Auto) 54 % (31-73) Lymphocytes (%) (Auto) 36 % (24-48) Monocytes (%) (Auto) 7 % (0-9) Eosinophils (%) (Auto) 2 % (0-3) Basophils (%) (Auto) 0 % (0-3) Neutrophils # (Auto) 5.8 x10^3/uL (1.8-7.7) Lymphocytes # (Auto) 3.9 x10^3/uL (1.0-4.8) Monocytes # (Auto) 0.8 x10^3/uL (0.0-1.1) Eosinophils # (Auto) 0.3 x10^3/uL (0.0-0.7) Basophils # (Auto) 0.0 x10^3/uL (0.0-0.2) Sodium Level 140 mmol/L (136-145) Potassium Level 3.5 mmol/L (3.5-5.1) Chloride Level 103 mmol/L (98-107) Carbon Dioxide Level 30 mmol/L (21-32) Anion Gap 7 (6-14) Blood Urea Nitrogen 14 mg/dL (7-20) Creatinine 0.7 mg/dL (0.6-1.0) Estimated GFR (Cockcroft-Gault) 94.2 BUN/Creatinine Ratio 20 (6-20) Glucose Level 93 mg/dL (70-99) Calcium Level 8.7 mg/dL (8.5-10.1) Total Bilirubin 0.3 mg/dL (0.2-1.0) Aspartate Amino Transf (AST/SGOT) 28 U/L (15-37) Alanine Aminotransferase (ALT/SGPT) 42 U/L (14-59) Alkaline Phosphatase 108 U/L (46-116) Total Protein 7.7 g/dL (6.4-8.2) Albumin 3.9 g/dL (3.4-5.0) Albumin/Globulin Ratio 1.0 (1.0-1.7) Test 07/15/20 00:05 SARS-CoV-2 RNA (FATOU) Negative (Negative) SARS-CoV-2 Antigen (Rapid) Negative (NEGATIVE) Allergies Allergies Coded Allergies Type Severity Reaction Last Updated Verified No Known Drug Allergies 07/14/20 No Disposition/Orders: D/C to Home Justicifation of Admission Dx: Justifications for Admission: Justification of Admission Dx: No PIPO SIERRA MD July 15, 2020 15:34
[2020-07-15] MEDS ORDERED: ACET325T21 PO (15:37)
--- NOTE | 2020-07-15 15:38 | DISCH ---
DISCHARGE INSTRUCTIONS Condition on Discharge Condition on Discharge: Stable Activity After Discharge Activity Instructions for Disc: Activity as tolerated Lifting Instructions after Dis: No heavy lifting, No pulling or pushing Exercise Instruction after Dis: Walk 15 min, 3 x per day Driving Instructions after Dis: Do not drive today Diet after Discharge Diet after Discharge: Regular Liquid Texture: Thin Liquid Checks after Discharge Checks after discharge: Check blood press - daily Contacting the DR. after DC Call your doctor for: If your condition worsens Follow-Up Follow up with: SEE PCP NEXT WEEK, TRY BUSTER FLEXION EXERCISES AT HOME Treatment/Equipment after DC Adaptive Equipment Issued: None PIPO SIERRA MD July 15, 2020 15:38
--- NOTE | 2020-07-15 16:46 | NUR ---
pt discharged home via private vehicle. RN stressed importance of finding a PCP for follow up. pt v/u. stable upon dc.
[2020-07-16] MEDS ORDERED: ENOXAPARIN 40 MG/0.4 ML SYRINGE. SQ SCH (09:00)
== END 2020-07-15 16:30 | disposition home or self-care (01) ==
LOC: ER 21:49 → CVICU 07-15 00:06
PROVIDERS: ADMIT Family Medicine; ATTEND Family Medicine
DX: I26.99 Other pulmonary embolism without acute cor pulmonale (principal); Z20.822 Contact with and (suspected) exposure to COVID-19; E66.01 Morbid (severe) obesity due to excess calories; D50.9 Iron deficiency anemia, unspecified; M54.6 Pain in thoracic spine; M79.605 Pain in left leg; M79.604 Pain in right leg; M40.204 Unspecified kyphosis, thoracic region; Z90.49 Acquired absence of other specified parts of digestive tract; Z79.899 Other long term (current) drug therapy; Z98.890 Other specified postprocedural states; Z68.31 Body mass index [BMI] 31.0-31.9, adult
CPT/HCPCS: 36415; 71275; 72128; 80053; 81001; 81025; 83540; 83550; 85025; 87426; 93005; 93970; 96372; 96374; 96375; 96376; 97165; 99284; G0378; J1650; J2270; J2405; Q9967; U0003; U0005; G0379